=== PATIENT | female | born 2000 | race Hispanic/Latino ===

== ENCOUNTER 2023-05-17 17:35 | Emergency (ER) | payer OTHER, SELFPAY ==
[2023-05-17 17:49] VITALS: BP 153/99; PULSE 133; RESP 16; TEMP 39.3; O2SAT 100
[2023-05-17 17:59] VITALS: TEMP 39.4
[2023-05-17] MEDS: IBUPROFEN 600 MG TABLET PO (17:59)
--- NOTE | 2023-05-17 18:05 | ED.URI ---
HPI - URI/Sore Throat General Chief Complaint: Upper Respiratory Infection Stated Complaint: Fever History of Present Illness HPI Narrative: 23-year-old female presents to the [facility] today complaining fever, sore throat, and chills. Patient stated symptoms started this morning when she woke up stated she felt like she had a fever and her throat was really sore. Patient feeling a little more fatigued than usual yesterday but stated that she did go to the gym yesterday and thought that it might be that. Patient took Tylenol around noon today for fever. Patient denies any cough, congestion, runny nose, nausea, vomiting, diarrhea, difficulty breathing, chest pain, or any other pain. Patient's tonsils are swollen but denies any difficulty eating or breathing. Patient denies any sick contacts. Related Data Home Medications Medication Instructions Recorded Confirmed No Home Medications 05/17/23 05/17/23 Allergies Allergy/AdvReac Type Severity Reaction Status Date / Time No Known Allergies Allergy Verified 05/17/23 17:50 Review of Systems Review of Systems: CONSTITUTIONAL: positive for fevers and chills. EYES: Denies visual changes, redness, or discharge. ENT: Denies otalgia. Positive for sore throat and swollen tonsils. CARDIOVASCULAR: Denies chest pain, palpitations, or edema. RESPIRATORY: Denies cough or dyspnea. GASTROINTESTINAL: Denies abdominal pain, nausea, vomiting, or diarrhea. GENITOURINARY: Denies dysuria or hematuria. SKIN: Denies rash or itching. MUSCULOSKELETAL: Denies back pain, joint pain, or myalgia. NEUROLOGIC: Denies headache, numbness, or weakness. Pertinent positives per HPI. PMFSH Comments At the time of my signature, I reviewed and agree with the nursing past medical, surgical, social, and family history. There is no relevant family history pertinent to the patient complaint. Exam Narrative: GENERAL: This is a well-nourished, well-developed patient, in no apparent distress. HEAD: normocephalic, atraumatic. EYES: Sclera clear/white. Vision is grossly intact. EARS: External ears normal, auditory canals clear and without drainage, TMs normal without perforation. Hearing grossly intact. NOSE: External nose normal with no obvious nasal discharge, nares with erythema present, no rhinorrhea. THROAT: Mucous membranes moist, posterior pharynx erythemic. Patient's tonsils are erythemic and 2+. Uvula midline. NECK: Neck supple, non-tender without lymphadenopathy, masses or thyromegaly. CARDIOVASCULAR: Tachycardic rate and rhythm without murmurs, gallops, or rubs. RESPIRATORY: Clear to auscultation. Breath sounds equal bilaterally. No wheezes, rales, or rhonchi. GASTROINTESTINAL: Abdomen soft, non-tender, nondistended. Bowel sounds are active. No hepato-splenomegaly, or palpable masses. No guarding. SKIN: warm, intact with no suspicious lesions or rash, good texture and turgor. NEURO: awake, alert, and oriented to person, place and time. There were no obvious focal neurologic abnormalities. EXTREMITIES: No clubbing, cyanosis, or edema. No joint tenderness, effusion, or edema noted. BACK: Nontender without deformity or crepitus. No flank tenderness. Course Course Level of Care: Express Care Visit Vital Signs Vital signs: Vital Signs Temperature 102.8 F H 05/17/23 17:49 Pulse Rate 133 H 05/17/23 17:49 Respiratory Rate 16 05/17/23 17:49 Blood Pressure 153/99 H 05/17/23 17:49 Pulse Oximetry 100 05/17/23 17:49 Oxygen Delivery Room Air 05/17/23 17:49 Temperature 103.0 F H 05/17/23 17:59 Pulse Rate 133 H 05/17/23 17:49 Respiratory Rate 16 05/17/23 17:49 Blood Pressure 153/99 H 05/17/23 17:49 Pulse Oximetry 100 05/17/23 17:49 Oxygen Delivery Room Air 05/17/23 17:49 Reviewed MDM - URI/Sore Throat MDM Narrative Medical decision making narrative: Rapid strep is negative in the office; however we will send to the lab for confirmation
[2023-05-17 18:19] VITALS: TEMP 37.8
== END 2023-05-17 18:19 | disposition home or self-care (01) ==
PROVIDERS: Emergency Provider Nurse Practitioner Family; PCP Physician Assistant
DX: J02.9 Acute pharyngitis, unspecified (principal); Z20.822 Contact with and (suspected) exposure to COVID-19
CPT/HCPCS: 87081; 87426; 87880; 99213; A9270; C9803; G0463